=== PATIENT | male | born 1980 ===

== ENCOUNTER 2017-04-23 17:42 | Emergency (ER) | payer OTHER ==
[2017-04-23 17:53] VITALS: BMI 33.2
--- NOTE | 2017-04-23 18:34 | C.PDOC ---
History Of Present Illness 37 y/o male presents to ED with c/o left elbow pain s/p slip and fall at 5:00 PM today. Patient states he missed the last step while walking down a ladder and fell, landing on left elbow. Denies head injury, LOC, new weakness, new numbness, or any other associated symptoms. Patient notes pain worsens with movement. Time Seen by Provider: 04/23/17 18:12 Chief Complaint (Nursing): Upper Extremity Problem/Injury History Per: Patient History/Exam Limitations: no limitations Onset/Duration Of Symptoms: Hrs Current Symptoms Are (Timing): Still Present Quality: "Pain" Exacerbating Factor(s): Movement Recent travel outside of the [place]: No Past Medical History Reviewed: Historical Data, Nursing Documentation, Vital Signs Vital Signs: Last Vital Signs Temp 98.2 F 04/23/17 18:45 Pulse 82 04/23/17 18:45 Resp 18 04/23/17 18:45 BP 110/65 04/23/17 18:45 Pulse Ox 99 04/23/17 18:45 - Medical History PMH: No Chronic Diseases Family History: States: Unknown Family Hx - Social History Hx Alcohol Use: No Hx Substance Use: No - Immunization History Hx Tetanus Toxoid Vaccination: No Hx Influenza Vaccination: No Hx Pneumococcal Vaccination: No Review Of Systems Except As Marked, All Systems Reviewed And Found Negative. Constitutional: Negative for: Fever, Chills Musculoskeletal: Positive for: Arm Pain (left elbow) Skin: Negative for: Rash Neurological: Negative for: Weakness, Numbness Physical Exam - Physical Exam Appears: Non-toxic, No Acute Distress Skin: Normal Color, Warm, Dry Head: Atraumatic, Normacephalic Extremity: Tenderness (lateral left elbow), Capillary Refill (< 2 sec.), No Deformity, No Swelling, Other (Pain with left elbow extension; normal ROM. No swelling, ecchymosis, lacerations. ) Extremity: Bilateral: Normal Color And Temperature Pulses: Left Radial: Normal, Right Radial: Normal Neurological/Psych: Oriented x3, Normal Speech, Normal Motor, Normal Sensation ED Course And Treatment - Other Rad Left Elbow X-Ray X-Ray: Interpreted by Me, Viewed By Me Interpretation: negative Progress Note: Treated with Tylenol. Left elbow x-ray ordered and reviewed, negative for acute fx or dislocation. Sling applied by VALE Mccarthy; checked by me. On re-eval, pt resting comfortably, in no acute distress. Advised f/u with PMD / ortho within 1-2 days. Disposition - Disposition Referrals: Myra Mcintyre MD [Staff Provider] - Disposition: HOME/ ROUTINE Disposition Time: 19:09 Condition: GOOD Additional Instructions: Follow up with the medical doctor/clinic within 1-2 days. Return if worsened. Instructions: Elbow Sprain (ED) Forms: [place] ([place]) - Clinical Impression Clinical Impression: Elbow contusion - PA / INKER / Resident Statement MD/DO has reviewed & agrees with the documentation as recorded. - Scribe Statement The provider has reviewed the documentation as recorded by the Scribe SM All medical record entries made by the Scribe were at my direction and personally dictated by me. I have reviewed the chart and agree that the record accurately reflects my personal performance of the history, physical exam, medical decision making, and the department course for this patient. I have also personally directed, reviewed, and agree with the discharge instructions and disposition.
[2017-04-23 19:11] VITALS: BP 110/65; PULSE 82; RESP 18; TEMP 98.2; O2SAT 99
--- NOTE | 2017-04-24 16:02 | RAD ---
PROCEDURE: Radiographs of the left elbow. HISTORY: post injury pain /swelling to area COMPARISON: No prior. FINDINGS: BONES: No acute fracture or destructive bony lesion identified. JOINTS: Normal. No osteoarthritis. SOFT TISSUES: Normal. JOINT EFFUSION: None. OTHER FINDINGS: None IMPRESSION: Unremarkable radiographs of the left elbow.
== END 2017-04-23 19:14 | disposition home or self-care (01) ==
LOC: C.ER 17:42
DX: S50.02XA Contusion of left elbow, initial encounter (principal); W01.0XXA Fall on same level from slipping, tripping and stumbling without subsequent striking against object, initial encounter